=== PATIENT | female | born 1960 | race Caucasian/White ===

== ENCOUNTER 2023-09-21 19:29 | Emergency (ER) | payer OTHER, SELFPAY ==
[2023-09-21 19:31] VITALS: BP 158/89; PULSE 100; RESP 16; TEMP 36.2; O2SAT 98; BMI 38.1
--- NOTE | 2023-09-21 19:49 | ED.GENADULT ---
HPI - General Adult General Chief complaint: Dental/Oral/Mouth Injury/Pain Stated complaint: Dry socket, pain in back of throat/right ear Time Seen by Provider: 09/21/23 19:41 History of Present Illness HPI narrative: Patient has some recent dental work on her right upper gum line in had a tooth pulled fairly there is a dry socket issue. She has had some ear pain and mouth pain. She has not noticed any redness. Related Data Home Medications Medication Instructions Recorded Confirmed aspirin 81 mg tablet,delayed 81 mg PO QDAY 03/14/23 09/21/23 release carvedilol 3.125 mg tablet 3.125 mg PO BID 03/14/23 09/21/23 glipizide 10 mg tablet, extended 20 mg PO DAILY 03/14/23 09/21/23 release 24 hr hydroxyzine HCl 25 mg tablet 25 mg PO BID 03/14/23 09/21/23 lisinopril 5 mg tablet 5 mg PO DAILY 03/14/23 09/21/23 meloxicam 15 mg tablet 15 mg PO DAILY 03/14/23 09/21/23 metformin 1,000 mg tablet 1,000 mg PO BID 03/14/23 09/21/23 rosuvastatin 10 mg tablet 10 mg PO QPM 03/14/23 09/21/23 Allergies Allergy/AdvReac Type Severity Reaction Status Date / Time tramadol [From [facility]] Allergy Verified 03/14/23 19:29 Review of Systems Status of ROS: Reports: 6 or more systems reviewed and unremarkable except as noted in History and below [facility] Medical History Side pain ?R10.9 - Unspecified abdominal pain (ICD-10) Social History Do you use any of these nicotine containing products: None How often do you have a drink containing alcohol: never AUDIT-C Alcohol total score: 0 Exam Narrative: Exam Narrative: Objective afebrile In no apparent distress Mouth and gum on the upper appear unremarkable on the right there does appear to be a tooth removed. Neck is supple, patient does not appear distressed. Const: Vital Signs, click to edit/add: Vital Signs - 24 hr 09/21/23 19:31 Temperature 97.1 F L Pulse Rate [Right Pulse Oximeter] 100 Respiratory Rate 16 Blood Pressure [Ri ght Upper Arm] 158/89 H Pulse Oximetry 98 Oxygen Delivery Me thod Room Air Course Vital Signs Vital signs: Initial Vital Signs Temperature 97.1 F L 09/21/23 19:31 Temperature Source Temporal Artery Scan 09/21/23 19:31 Pulse Rate 100 09/21/23 19:31 Respiratory Rate 16 09/21/23 19:31 Blood Pressure 158/89 H 09/21/23 19:31 Blood Pressure Mean 112 H 09/21/23 19:31 Blood Pressure Position Sitting 09/21/23 19:31 Pulse Oximetry 98 09/21/23 19:31 Oxygen Delivery Method Room Air 09/21/23 19:31 Vital Signs Temperature 97.1 F L 09/21/23 19:31 Pulse Rate 100 09/21/23 19:31 Respiratory Rate 16 09/21/23 19:31 Blood Pressure 158/89 H 09/21/23 19:31 Pulse Oximetry 98 09/21/23 19:31 Oxygen Delivery Method Room Air 09/21/23 19:31 Temperature 97.1 F L 09/21/23 19:31 Pulse Rate 100 09/21/23 19:31 Respiratory Rate 16 09/21/23 19:31 Blood Pressure 158/89 H 09/21/23 19:31 Pulse Oximetry 98 09/21/23 19:31 Oxygen Delivery Method Room Air 09/21/23 19:31 Medications Administered Medications: Discontinued Medications Generic Name Dose Route Start Last Admin Trade Name Freq PRN Reason Stop Dose Admin Ketorolac Tromethamine 60 mg 09/21/23 19:47 09/21/23 19:53 Ketorolac 30 Mg/Ml Inj IM 09/21/23 19:48 60 mg ONCE ONE Administration Medical Decision Making MDM Narrative Medical decision making narrative: [age] year white female with history of a dry socket type problem. Dentist gave her some gel to use, she continues to have pain. I think it be reasonable to try an injection of Toradol, then Toradol 10 mg t.i.d. over the next couple of days, she will stop her meloxicam while she has the Toradol and restart that when she completes the Toradol. Recommend update her dentist tomorrow, return to ED as needed. Discharge Plan Discharge Clinical Impression: Pain, dental Patient Disposition: Home, Self-Care Condition: Stable Additional Instructions: Hold on your meloxicam while your on Toradol, Toradol 3 times a day for the next couple of days as needed, then restart meloxicam. Update your dentist tomorrow and get recommendations. Activity Level: No Restrictions Discharge Diet: Regular Prescriptions: No Action metformin 1,000 mg tablet 1,000 mg PO BID glipizide 10 mg tablet extended release 24hr 20 mg PO DAILY lisinopril 5 mg tablet 5 mg PO DAILY rosuvastatin 10 mg tablet 10 mg PO QPM carvedilol 3.125 mg tablet 3.125 mg PO BID aspirin 81 mg tablet,delayed release (DR/EC) 81 mg PO QDAY hydroxyzine HCl 25 mg tablet 25 mg PO BID meloxicam 15 mg tablet 15 mg PO DAILY Follow Up/Referrals: Priyank Layne MD [Primary Care Provider] - Stand Alone Forms: [employer] Info Instructions
[2023-09-21] MEDS: KETOROLAC 30 MG/ML inj 60 MG IM (19:53)
== END 2023-09-21 20:18 | disposition home or self-care (01) ==
PROVIDERS: Emergency Provider Family Medicine; PCP Family Medicine
DX: K08.89 Other specified disorders of teeth and supporting structures (principal)
CPT/HCPCS: 96372; 99283; J1885